=== PATIENT | female | born 1980 | race Asian ===

== ENCOUNTER 2021-07-04 10:42 | Day surgery (SDC) | payer OTHER, SELFPAY ==
--- NOTE | 2021-06-28 15:45 | PCM.HP.BLA ---
History and Physical Date of Admission: 07/04/21 HPI: The patient is a 41 year old female presenting for pre-operative visit. She is scheduled for hysteroscopy dilation and curettage with Mirena IUD insertion, for menorrhagia and endometrial hyperplasia without atypia on 07/04/21. Procedure discussed along with risks, benefits and complications. Other alternatives discussed for management. Consent form signed? Yes. ? ? PAST MEDICAL HISTORY PAST MEDICAL HISTORY Diagnosis Date ? Breast lump 03/2018 ? Right ? Breast pain 08/2018 ? bilateral ache. ? Gestational hypertension without significant proteinuria in third trimester 11/10/2016 ? Healthy adult on routine physical examination ? ? HTN (hypertension) ? ? Infertility, female ? ? IVF ? Obesity (BMI 30-39.9) ? ? ? PAST SURGICAL HISTORY PAST SURGICAL HISTORY Procedure Laterality Date ? DELIVERY ONLY ? 12/15/2016 ? twins ? IVF PACKAGE ? CURRENT MEDICATIONS Current Outpatient Medications Medication Sig Dispense Refill ? medroxyPROGESTERone (PROVERA, CYCRIN) 10 mg tablet Take 1 tablet by mouth once daily. 90 tablet 3 ? labetalol (TRANDATE) 200 mg tablet Take 1 tablet by mouth twice daily. 180 tablet 1 ? hydroCHLOROthiazide (HYDRODIURIL, ESIDRIX) 25 mg tablet Take 1 tablet by mouth once daily. 90 tablet 1 ? No current facility-administered medications for this visit. ? ? ALLERGIES: Patient has no known allergies. ? PERSONAL HISTORY: SOCIAL HISTORY Social History ? Tobacco Use ? Smoking status: Former Smoker ? ? Packs/day: 0.50 ? ? Years: 2.00 ? ? Pack years: 1.00 ? ? Quit date: 05/23/2008 ? ? Years since quittin.1 ? Smokeless tobacco: Never Used Vaping Use ? Vaping Use: Never used Substance Use Topics ? Alcohol use: Not Currently ? ? Comment: Rarely. ? Drug use: No ? FAMILY HISTORY: FAMILY HISTORY FAMILY HISTORY Problem Relation Age of Onset ? Hypertension Mother ? ? Hypertension Father ? ? Blood Clots Father ? ? other (Liver Cancer) Maternal Grandmother 67 ? ? REVIEW OF SYMPTOMS: GENERAL: denies fevers or chills ENDOCRINOLOGY: has not been on steroids Cardiology : denies palpitations or chest pain Respiratory: denies SOB or cough Hematology: denies history of prolonged bleeding or easy bruising or VTE Allergy: Denies history of personal or family history of allergy to anesthesia ? PHYSICAL EXAMINATION: ? VITALS: Blood pressure 126/86, weight 203 lb (92.1 kg), last menstrual period 06/11/2021. ? GENERAL: The patient is well nourished, well hydrated in no acute distress. , The patient is oriented to time, place, and person. NECK: Supple. No lynphadenopathy, normal thyroid, no thyromegaly. LUNGS: Clear to auscultation bilaterally. no wheezes, rhonchi or rales HEART: Regular rate and rhythm, Normal heart sounds and No murmurs or gallops ? IMPRESSION: Endometrial hyperplasia without atypia, menorrhagia ? PLAN: The risks/benefits/alternatives and personal involved for the planned hysteroscopy dilation curettage and Mirena IUD insertion were reviewed with the patient. Her questions were answered to her satisfaction and she desires to proceed. Consent was signed. I reviewed with her postop instructions and expectations. ? ? I have reviewed and updated past medical and surgical history, medications and allergies
[2021-07-04] VITALS (8 sets, daily range): BP systolic 146–160; BP diastolic 81–100; PULSE 68–75; RESP 12–16; TEMP 36.1–36.6; O2SAT 96–100; BMI 36.8
[2021-07-04 11:05] LABS: Internal QC Validated? YES +Cl - CLEAR BKGD; Pregnancy, Urine Negative Negative
[2021-07-04] MEDS: Lactated Ringers 1,000 ML 100 ML IV (11:29)
[2021-07-04] MEDS: Acetaminophen 500 MG Tablet 1000 MG PO (11:31)
[2021-07-04] MEDS: Celecoxib 200 MG Capsule 400 MG PO (11:31)
[2021-07-04 11:49] LABS: Hematocrit 35.1 % (37-47); Hemoglobin 11.5 g/dL (12.0-15.0); Mean Corp Hgb Conc 32.8 g/dL (32-36); Mean Corpuscular Volume 91.6 fL (81-99); Mean Platelet Vol. 8.7 fl (6.2-12.0); Platelet Count 347 K/mm3 (150-450); RBC Distribution Width CV 11.9 % (11.6-14.6); Red Blood Count 3.83 M/mm3 (4.2-5.4)
[2021-07-04] MEDS: Levonorgestrel IUD (Liletta) 1 EACH INTRA-UTER (12:15)
--- NOTE | 2021-07-04 12:15 | EMB_PTH ---
PATIENT: CHANA GUNDERSON LOC: [facility] – [place] U#:[id number] AGE/SX: 41/F ROOM: RE07/04/[address]: Dr. Willow Subramanian MD : 1980 BED: DIS: 07/04/2021 SPEC #: [id number] RECD: 07/04/21 13:03 STATUS: CAROLYN ERIKA #: [id number] CHRIS: 07/04/21 12:[address]: Willow Subramanian DEPT: SURGICAL PATHOLOGY RECD BY: Italia Beyer ENTERED: 07/05/21 08:59 SP TYPE: ENDOM BX/C NADIA DR: No Primary Care Phys Tissues: Endometrium, NOS Procedures: Surgery Specimen Level IV HEADER OPERATION: Hysteroscopy, D & C, IUD insertion PRE-OP DIAGNOSIS: Endometrial hyperplasia without atypia, menorrhagia TISSUE SUBMITTED: Endometrial curettings MICROSCOPIC DIAGNOSIS Endometrium, curettings: Secretory endometrium with focal glandular and stromal breakdown. Fibrinopurulent material. Rare fragment of benign squamous mucosa. Rare strips of benign superficial endocervix. AM:lisa 07/08/2021 MICROSCOPIC DESCRIPTION Slides are reviewed. GROSS DESCRIPTION Received in fixative is one container labeled with the patient's name and designated endometrial curettings. The specimen consists of multiple fragments of hemorrhagic soft tissue that in aggregate measure 5 x 3 x 0.6 cm. The entire specimen is submitted in four cassettes. / SJ:lisa 07/05/21 TC:2 CPT: 94883
--- NOTE | 2021-07-04 12:29 | PCM.OPRPT ---
Problems Associated Problem List Diagnoses (1) Abnormal uterine bleeding (AUB): Report of Operation Date of Procedure: 07/04/21 Pre-Operative Diagnosis: abnormal uterine bleeding Post-Operative Diagnosis: same Surgery/Procedure Performed:: hysteroscopy D&C with IUD insertion Surgeon: Willow Subramanian health manager: None Type of Anesthesia: MAC Anesthesiologist: Terry Nguyen Special Medications: none Specimen's removed: endometrial curettings Drains: none Estimated Blood Loss (mL): 10 Description of Procedure: The patient was taken to the OR where she was prepped and draped in dorsal lithotomy position. The weighted speculum was placed in the vagina and the anterior lip of the cervix was grasped with a single-tooth tenaculum. The cervix was dilated serially with Hegar dilators. The [5mm] hysteroscope was placed into the uterine cavity and the above findings were noted. Bilateral tubal ostia were not identified. There was very lush thick endometrium. The hysteroscope was removed. A gentle sharp curettage was done of the uterine cavity. The cavity was reexamined and there were no polyps or other focal abnormalities noted. There was ragged endometrium at this point. The Liletta IUD was then ready at inserted in the usual sterile fashion. The strings were trimmed to 2 cm. The instruments were removed from the vagina. The specimen was handed off and sent to pathology. All sponge and needle counts were correct. Vaginal sweep was performed by me. The patient was awakened and taken to the recovery room in stable condition. Hysteroscopic ins: 300cc normal saline Hysteroscopic outs:150cc Grafts/Implants Used: none Procedure Start Time: 12:14 Procedure Stop Time: 12:25 Complications none Admit VTE Documentation VTE Present on Admission: No VTE Mechan Device Prophylaxis: SCD's VTE Pharm Prophylaxis ordered?: No Reason prophylaxis not ordered:: Procedure Not Indicated
--- NOTE | 2021-07-04 12:31 | DCINST_ITS ---
Discharge Instructions Diet Discharge Diet: No restrictions Activity May shower in (days): 1 May resume sexual activity in: 2 weeks Lifting Restrictions: none Dressing / Incision Call your doctor if your incision/area has: Sudden Increased Bleeding and Foul Smelling Discharge Call your doctor if you observe: Fever of 101 or Higher and Using more than 1 p ad per hour (for 2 hrs in a row) Follow Up Care Please Follow Up With: Willow Subramanian MD When: 2-4 weeks or as needed. Call [phone] to make an appointment or with any concerns. Test Results: Test results from this visit will be discussed in further detail at your follow-up appointment, if applicable. Discharge Plan Admission Primary Reason for Your Visit: abnormal uterine bleeding Attending Provider: Willow Subramanian Primary Care Provider: Care Physician,Mili Primary Discharge Orders/Prescriptions Prescriptions: No Action labetalol 200 MG tablet 100 mg PO BID RF: 0 Referrals / Follow Up: Care Physician,No Primary [Primary Care Provider] - Disposition Disposition (needs filled in before D/C Order can be placed): Home, Self Care
[2021-07-04] MEDS: Ondansetron 4 MG/2 ML Vial IM (12:51)
== END 2021-07-04 13:55 | disposition home or self-care (01) ==
LOC: SDC 10:44 → AC 10:45
PROVIDERS: Referring Provider Obstetrics & Gynecology; Visit Provider Obstetrics & Gynecology
PROC: 0UDB8ZZ Extraction of Endometrium, Via Natural or Artificial Opening Endoscopic (ICD-10-PCS; CPT 58558; principal; 2021-07-04 12:05)
DX: N85.00 Endometrial hyperplasia, unspecified (principal); Z30.430 Encounter for insertion of intrauterine contraceptive device; I10 Essential (primary) hypertension; E66.9 Obesity, unspecified; N93.9 Abnormal uterine and vaginal bleeding, unspecified; R93.89 Abnormal findings on diagnostic imaging of other specified body structures; Z68.36 Body mass index [BMI] 36.0-36.9, adult; Z79.899 Other long term (current) drug therapy; Z87.891 Personal history of nicotine dependence
CPT/HCPCS: 00952; 58300; 58558; 81025; 85027; 88305; J7120; J2405

== ENCOUNTER 2022-10-09 09:10 | Emergency (ER) | payer OTHER, SELFPAY ==
[2022-10-09 09:11] VITALS: BP 198/109; PULSE 77; RESP 18; TEMP 36.6; O2SAT 98; BMI 36.6
--- NOTE | 2022-10-09 09:35 | EDS_ITS ---
HPI History of Present Illness Chief Complaint: Cold Sx Detail of Chief Complaint: Upper respiratory symptoms that started 3 weeks ago. Informant: patient Onset/Context/Timing Onset: Weeks Context: Sudden Onset Timing: Continuous and Waxes and wanes Quality: Congestion, cough productive of colored sputum Location: Upper respiratory Current Severity: Mild Maximum Severity: Moderate Worsened by: Worse at night Relieved by: Nothing Associated Symptoms Associated Symptoms: Difficulty breathing at night Narrative Narrative: Patient is a 42-year-old woman who states she was seen at urgent care. There are no records available through [facility]. Patient is presently on Augmentin 875 mg twice daily. Patient states she is had no improvement. She denies headache, she denies photophobia, neck pain or neck stiffness. Her cough is productive of colored sputum. She denies history of asthma as an adult or child. She denies history of smoking. Her son does have asthma and she states she does not know how to use an inhaler. Patient denies documented fever and denies chills. She denies chest discomfort. She denies GI symptoms. She denies myalgias, arthralgias. She states she was not tested for COVID when seen at urgent care. Patient does have history of hypertension and is presently on labetalol. Review of outside records indicates patient does have history of hypertension for several years. Blood pressure is higher than normal. Patient denies leg pain, swelling or discoloration. Patient denies history of VTE. Patient has no risk factors for VTE. Prior similar symptoms: Yes Recent Illness/Hospitalization: Yes PFSH PFSH Medical History HTN (hypertension) Home Medications labetalol 200 mg tablet 100 mg PO BID 07/03/21 [History Last Taken 07/04/21 09:00] Allergy/AdvReac Type Severity Reaction Status Date / Time No Known Allergies Allergy Verified 10/09/22 09:14 Surgical History H/O: Social History (Updated 10/09/22 @ 09:[address] Andrey Pena MD) household members: children Smoking Status: Never smoker substance use type: does not use ROS ROS ED Constitutional Constitutional ED: Denies chills, fever(s), subjective, sweats or weight loss Eyes Eyes: Denies blurry vision, change in vision or diplopia ENT ENT ED: Reports rhinorrhea; Denies ear pain or sore throat Cardiovascular Cardiovascular: Denies chest pain, orthopnea, palpitations, paroxysmal nocturnal dyspnea or racing heartbeat Respiratory/Chest Respiratory/Chest: Reports cough, dyspnea and sputum; Denies dyspnea on exertion, orthopnea or paroxysmal nocturnal dyspnea Gastrointestinal Gastrointestinal: Denies abdominal pain, diarrhea, nausea or vomiting Musculoskeletal Musculoskeletal: Denies arthralgias, back pain, myalgias or neck pain Neurologic Neurologic: Denies headache(s), paresthesias or weakness Hematologic/Lymphatic Hematologic/Lymphatic: Reports systems reviewed and no addt'l complaints, except as documented EXAM Physical Exam Const Vital Signs: 10/09/22 09:11 10/09/22 09:18 10/09/22 09:37 Temperature 97.9 F Temperature Source Temporal Pulse Rate 77 71 Respiratory Rate 18 16 Respiratory Effort Non-Labored Short of Breath Respiratory Pattern Normal Blood Pressure 198/109 H Blood Pressure Mean 138 Pulse Ox 98 Oxygen Delivery Method Room Air Positive well nourished, well developed and obese Constitutional Narrative: Patient does have a hoarse voice. Blood pressure is elevated. General Appearance ED: well developed and NAD; Negative for cyanotic, diaphoretic or pallor Nutritional Appearance: obese HEENT Reports moist mucous membranes HEENT Narrative: Head is atraumatic normocephalic. Ears normal. TMs normal. Nares patent with slight drainage. Uvula midline. No abnormality the posterior pharynx. Eyes PERRL and EOMs intact bilaterally General Eye ED: Negative for pale conjunctiva or scleral icterus Neck no lymphadenopathy, supple and no JVD Neck Narrative: Trachea is midline. There is no inspiratory expiratory stridor. Chest Wall inspection of chest normal and palpation of chest normal Resp normal respiratory effort and No clear to auscultation bilaterally Auscultation: wheezes expiratory wheezes and throughout Cardio regular rate, regular rhythm, S1 normal heart sound, S2 normal heart sound and no murmurs GI normal to inspection, nondistended, normoactive bowel sounds, non-tender, non- distended and no masses; Negative for hepatosplenomegaly Back/Spine no CVA tenderness Extremity normal to inspection Extremity Narrative: There is no asymmetry, swelling, discoloration, leg vein distention, palpable cords or tenderness along the distribution of the deep venous system. Neuro oriented x3, CN's II-XII intact bilaterally and no sensory deficits noted Sensorium / Orientation: alert Psych mental status grossly normal Skin no rashes or lesions noted, no wounds and skin turgor normal General Skin Exam: Negative for pallor MDM MDM MDM Narrative Medical decision making narrative: With symptoms of productive cough for 3 weeks will obtain chest x-ray to evaluate for pneumonia. Since patient has expiratory wheezing noted throughout she was treated with albuterol. Also obtain COVID test. Differential is viral infection versus atypical pneumonia versus purulent bronchitis. There is no concern for PE since patient is PERC negative. Patient was reassessed at 1155. Patient appears much better. There is a slight wheeze with forced expiration. For this reason we will treat with prednisone in addition to the albuterol MDI. Patient was instructed to continue taking the antibiotics. Radiography Chest X-Ray - ED: 2 View and Read by ED Physician (2 view chest x-ray reveals no acute abnormality. Cardiac silhouette size normal. Lung parenchyma normal. Osseous structures are normal. Is independently reviewed and interpreted by me) Diagnostic Testing: Clinical Impression(s) from Imaging Studies Chest X-Ray 10/09/22 11:25 IMPRESSION: Normal x-ray examination of the chest. Electronically Signed: Raheel Foster MD at 11:44 EST , Rhythm Strip Rhythm Strip: Sinus Rhythm Rate: 75 Ectopy: None Discharge Plan Triage Chief Complaint: Cold Sx ED Provider: Andrey Pena Dx/Rx/DC Orders Clinical Impression: Bronchitis, purulent, chronic, Acute bronchospasm Prescriptions: No Action labetalol 200 MG tablet 100 mg PO BID Primary Care Provider: Care Physician,No Primary Referrals: Care Physician,No Primary [Primary Care Provider] - Doctor,Your [Non-Staff] - 1 Week if not improving Activity Restrictions/Additional Instructions: Continue taking the antibiotic you were prescribed. 2 puffs of inhaler every 2-4 hours while awake for the next 2 days then every 4- 6 hours for the next 5 days Take prednisone until gone Disposition Disposition: Home, Self Care
[2022-10-09 09:37] VITALS: PULSE 71; RESP 16
[2022-10-09] MEDS: Albuterol 2.5 MG/3 ML VIAL.NEB. INHALATION (09:37)
--- NOTE | 2022-10-09 11:25 | RAD_ITS ---
STUDY: X-RAY CHEST REASON FOR EXAM: Female, 42 years old. Active cough, wheezing TECHNIQUE: PA and lateral views of the chest. COMPARISON: None. FINDINGS: The lungs are clear and expanded. There is no demonstrated pleural abnormality. Normal size heart. Normal mediastinum and sally. Normal visualized pulmonary arteries. Normal visualized aortic arch and descending thoracic aorta. Normal visualized thoracic spine. Normal visualized ribs, clavicles, and shoulders. There is no demonstrated abnormality of the visualized soft tissue structures of the upper abdomen. RAD/Chest PA and Lateral IMPRESSION: Normal x-ray examination of the chest. Electronically Signed: Raheel Foster MD at 11:44 EST ,
[2022-10-09 12:13] VITALS: BP 137/63; PULSE 71; RESP 16; O2SAT 99
== END 2022-10-09 12:14 | disposition home or self-care (01) ==
PROVIDERS: Emergency Provider Emergency Medicine; Visit Provider Emergency Medicine
DX: J41.1 Mucopurulent chronic bronchitis (principal); J98.01 Acute bronchospasm; E66.9 Obesity, unspecified
CPT/HCPCS: 71046; 87428; 94640; 99282